=== PATIENT | female | born 1965 | race Caucasian/White ===

== ENCOUNTER → 2017-11-06 | Outpatient (CLI) | payer OTHER | END | disposition home or self-care (01) | LOC: OIH 13:30 | PROVIDERS: ATTEND Family Medicine | DX: Z13.6 Encounter for screening for cardiovascular disorders (principal) | CPT/HCPCS: 75571 ==

== ENCOUNTER → 2019-08-01 | Outpatient (CLI) | payer BC | END | disposition home or self-care (01) | LOC: RAH 12:45 | PROVIDERS: ATTEND Family Medicine | DX: M17.11 Unilateral primary osteoarthritis, right knee (principal); M79.604 Pain in right leg | CPT/HCPCS: 73560; 93971 ==

== ENCOUNTER → 2022-10-19 | Outpatient (CLI) | payer BC, OTHER | END | disposition home or self-care (01) | LOC: RAH 08:45 | PROVIDERS: ATTEND Internal Medicine Gastroenterology | DX: K76.89 Other specified diseases of liver (principal); R94.5 Abnormal results of liver function studies; R93.2 Abnormal findings on diagnostic imaging of liver and biliary tract | CPT/HCPCS: 74183 ==

== ENCOUNTER → 2024-05-15 | Outpatient (CLI) | payer BC | END | disposition home or self-care (01) | LOC: SHCH 13:57 | PROVIDERS: ATTEND Internal Medicine | DX: R00.1 Bradycardia, unspecified (principal) | CPT/HCPCS: 93306 ==

== ENCOUNTER → 2024-07-28 | Outpatient (CLI) | payer BC ==
[~2024-07-28] MED LIST: LOSA25TA41 PO; MAGN100T6 PO; MULT-1258 PO; TRAZODONE PO; URSO500T10 PO
--- NOTE | 2024-07-28 15:23 | HMCIMG ---
CT ABDOMEN W/O CONTRAST REASON: ABN FINDING ON DX IMAGING OF ABD REGION COMPARISON: 12/19/2011 TECHNIQUE: Images are obtained from lung bases to the iliac crests without oral or IV contrast. FINDINGS: There is calcified granuloma right posterior inferior lung base. There are no noncalcified pulmonary nodules. There are no focal liver lesions. There is a 3 mm nonobstructing stone lower pole calyx right kidney. Kidneys appear otherwise unremarkable with no mass or hydronephrosis.. Spleen and pancreas appear unremarkable. There has been a previous cholecystectomy. Bowel loops appear unremarkable. This includes normal appearance of the appendix There is no evidence of free fluid or intraperitoneal air. There are no focal fluid collections. Aorta and retroperitoneum appear normal. The anterior abdominal wall is intact. Osseous structures appear unremarkable. IMPRESSION: 1. Absent gallbladder 2. 3 mm nonobstructing stone lower pole calyx right kidney. 3. Otherwise unremarkable noncontrast CT abdomen and pelvis. CT was performed with one or more following dose reduction techniques: automated exposure control, adjustment of the mA and kv according to patient's size, or use of a iterative reconstruction technique.
== END | disposition home or self-care (01) ==
LOC: RAH 13:18
PROVIDERS: ATTEND Family Medicine
DX: N20.0 Calculus of kidney (principal); R93.5 Abnormal findings on diagnostic imaging of other abdominal regions, including retroperitoneum; J84.10 Pulmonary fibrosis, unspecified
CPT/HCPCS: 74150